=== PATIENT | female | born 1980 | race American Indian/Alaskan Native ===

== ENCOUNTER 2016-08-06 15:30 | Emergency (ER) | payer MEDICAID ==
[2016-08-06 16:04] VITALS: BP 118/74
--- NOTE | 2016-08-06 17:56 | Emergency Department Report ---
ED Upper Extremity Inj HPI - General Chief Complaint: Extremity Problem,Nontraumatic Stated Complaint: RT HAND SWOLLEN/PAIN IN RT ARM Time Seen by Provider: 08/06/16 17:47 Source: patient Mode of arrival: Ambulatory Limitations: No Limitations - History of Present Illness MD Complaint: Injury to:: right, arm, forearm -: Sudden Other Extremity Injury: Fingers: Left, Hand: Left, Wrist: Left, Elbow: Left, Forearm: Left Other Injuries: none Handedness: right Improves With: none Worsens With: none Context: injury, other (lifting) - Related Data Previous Rx's Medication Instructions Recorded Last Taken Type Ibuprofen [Motrin] 800 mg PO Q8HR PRN #12 tablet 08/06/16 Unknown Rx Metaxalone [Skelaxin] 800 mg PO TID #12 tablet 08/06/16 Unknown Rx Allergies Allergy/AdvReac Type Severity Reaction Status Date / Time No Known Allergies Allergy Unverified 08/06/16 15:59 ED Review of Systems ROS: Stated complaint: RT HAND SWOLLEN/PAIN IN RT ARM Other details as noted in HPI Constitutional: denies: chills, fever Eyes: denies: eye pain, eye discharge, vision change ENT: denies: ear pain, throat pain Respiratory: denies: cough, shortness of breath, wheezing Cardiovascular: denies: chest pain, palpitations Endocrine: no symptoms reported Gastrointestinal: denies: abdominal pain, nausea, diarrhea Genitourinary: denies: urgency, dysuria, discharge Musculoskeletal: joint swelling, other (patient complaining of right forearm and hand swelling and pain after injuring herself while lifting heavy object today). denies: back pain, arthralgia Skin: denies: rash, lesions Neurological: denies: headache, weakness, paresthesias Psychiatric: denies: anxiety, depression Hematological/Lymphatic: denies: easy bleeding, easy bruising ED Past Medical Hx - Past Medical History Previous Medical History?: No - Surgical History Past Surgical History?: No - Social History Smoking Status: Current Every Day Smoker Substance Use Type: Alcohol - Medications Home Medications: Home Medications Medication Instructions Recorded Confirmed Last Taken Type Ibuprofen [Motrin] 800 mg PO Q8HR PRN #12 tablet 08/06/16 Unknown Rx Metaxalone [Skelaxin] 800 mg PO TID #12 tablet 08/06/16 Unknown Rx ED Physical Exam - General Limitations: No Limitations General appearance: alert, in no apparent distress - Head Head exam: Present: atraumatic, normocephalic - Eye Eye exam: Present: normal appearance - ENT ENT exam: Present: mucous membranes moist - Neck Neck exam: Present: normal inspection. Absent: tenderness, meningismus - Respiratory Respiratory exam: Present: normal lung sounds bilaterally. Absent: respiratory distress, wheezes, rales, rhonchi - Cardiovascular Cardiovascular Exam: Present: regular rate, normal rhythm. Absent: systolic murmur, diastolic murmur, rubs, gallop - GI/Abdominal GI/Abdominal exam: Present: soft, normal bowel sounds - Extremities Exam Extremities exam: Present: normal inspection - Expanded Upper Extremity Exam Right Elbow exam: Present: full ROM, tenderness (medial epicondylitis), swelling. Absent: ecchymosis, deformity, crepidus, dislocation, erythema, effusion, pain w / pronation/supination, tenderness over radial head Forearm Wrist exam: Present: full ROM, swelling. Absent: tenderness, laceration (minimal), ecchymosis, deformity, crepidus, dislocation, erythema, tenderness over anatomical snuff box, pain with axial thumb loading Hand Wrist exam: Present: full ROM, swelling, other (ring cut off of the right fourth finger). Absent: tenderness, laceration, ecchymosis, deformity, crepidus , dislocation, erythema Neuro motor exam: Present: wrist extension intact, thumb opposition intact, thumb IP flexion intact, thumb adduction intact, fingers 2-5 abduction intact Neurosensory exam: Present: 2-point discrimination, radial nerve intact, ulnar nerve intact, median nerve intact Vascular: Present: normal capillary refill. Absent: vascular compromise, pulse deficit radial art, pulse deficit ulnar art - Back Exam Back exam: Present: normal inspection - Neurological Exam Neurological exam: Present: alert, oriented X3 - Psychiatric Psychiatric exam: Present: normal affect, normal mood - Skin Skin exam: Present: warm, dry, intact, normal color. Absent: rash ED Course Vital Signs 08/06/16 16:00 Temperature 98.8 F Pulse Rate 90 Respiratory 18 Rate Blood Pressure 118/74 O2 Sat by Pulse 100 Oximetry - Reevaluation(s) Reevaluation #1: 08/06/16 18:38 Ring removed. Patient ready for discharge. ED Medical Decision Making - Medical Decision Making She is on no hormone replacement therapy, has no inspiratory chest pain, no dyspnea on exertion, hemoptysis, or syncope.negative perc Critical care attestation.: If time is entered above; I have spent that time in minutes in the direct care of this critically ill patient, excluding procedure time. ED Disposition Clinical Impression: Medial epicondylitis of elbow Disposition: DISCHARGED TO HOME OR SELFCARE Is pt being admited?: No Condition: Stable Prescriptions: Ibuprofen [Motrin] 800 mg PO Q8HR PRN #12 tablet PRN Reason: Pain Metaxalone [Skelaxin] 800 mg PO TID #12 tablet Referrals: PRIMARY CARE, [Primary Care Provider] - 3-5 Days
[2016-08-06] MEDS ORDERED: PERCOCET 5/325 PO ONE (18:26)
== END 2016-08-06 18:56 | disposition home or self-care (01) ==
LOC: ED 15:30
DX: M77.02 Medial epicondylitis, left elbow (principal); F17.200 Nicotine dependence, unspecified, uncomplicated; X58.XXXA Exposure to other specified factors, initial encounter; Y93.9 Activity, unspecified; Y92.9 Unspecified place or not applicable; Y99.9 Unspecified external cause status
CPT/HCPCS: 99282